=== PATIENT | female | born 1950 | race Caucasian/White ===

== ENCOUNTER 2020-12-27 17:45 | Emergency (ER) | payer OTHER, BC ==
[2020-12-27 18:53] VITALS: BP 127/78; PULSE 73; TEMP 99; BMI 23.5
== END 2020-12-27 18:55 | disposition home or self-care (01) ==
LOC: FER 17:45
PROC: 0HQFXZZ Repair Right Hand Skin, External Approach (ICD-10-PCS; principal; 2020-12-27)
DX: S61.212A Laceration without foreign body of right middle finger without damage to nail, initial encounter (principal); W26.8XXA Contact with other sharp object(s), not elsewhere classified, initial encounter
CPT/HCPCS: 99282-25

== ENCOUNTER 2020-12-28 13:34 | Emergency (ER) | payer OTHER, BC ==
[2020-12-28 13:53] VITALS: BP 118/96; PULSE 70; TEMP 99; BMI 23.6
== END 2020-12-28 14:04 | disposition home or self-care (01) ==
LOC: FER 13:34
DX: S61.411D Laceration without foreign body of right hand, subsequent encounter (principal)
CPT/HCPCS: 99283-25